=== PATIENT | female | born 2000 | race Caucasian/White ===

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

== ENCOUNTER 2023-06-03 20:36 | Emergency (ER) | payer OTHER, SELFPAY ==
[2023-06-03 21:20] VITALS: BP 145/80; PULSE 79; RESP 18; TEMP 36.9; O2SAT 98; BMI 30.7
[2023-06-03 21:49] LABS: MANUAL DIFF FLAG NO
[2023-06-03 21:50] LABS: Basophils Absolute Auto 0.1 X10*3/uL (0.0-0.2); Basophils Percent Auto 0.8 % (0-2); Eosinophils Absolute Auto 0.1 X10*3/uL (0.0-0.4); Eosinophils Percent Auto 0.9 % (0-4); Hematocrit 43.5 % (37.0-47.0); Hemoglobin 14.3 g/dl (12.0-16.0); Imm Gran Abs Auto 0.03 X10*3/uL (0.00-0.03); Imm Gran Pct Auto 0.3 % (0.0-0.4); Lymphocytes Absolute Auto 3.1 X10*3/uL (1.2-4.9); Lymphocytes Percent Auto 25.6 % (20-40); Mean Corpuscular HGB Conc 32.9 g/dl (31.0-35.0); Mean Corpuscular Hemoglobin 28.3 pg (27.0-33.0); Mean Platelet Volume 10.1 fL (9.4-12.3); Monocytes Absolute Auto 1.3 X10*3/uL (0.1-1.2); Monocytes Percent Auto 10.4 % (2-11); Neutrophils Absolute Auto 7.4 x10*3/uL (2.0-8.3); Platelet Count 338 X10*3/uL (160-400); Red Blood Count 5.06 X10*6/uL (4.20-5.50); Red Cell Distribution Width 12.5 % (11.0-16.0)
[2023-06-03 22:06] LABS: Alanine Aminotransferase 12 U/L (0-31); Albumin Level 4.7 g/dL (3.5-5.0); Alkaline Phosphatase 59 U/L (39-117); Anion Gap 13 (12-20); Aspartate Amino Transferase 14 U/L (5-31); Bilirubin Total 0.4 mg/dL (0.0-1.0); Blood Urea Nitrogen 11 mg/dL (9-16); Calcium 10.3 mg/dL (8.4-10.2); Carbon Dioxide 25 mmol/L (22-29); Chloride 106 mmol/L (96-108); Creatinine Clr Calc Pharmacy 127.2; Estimated Glomerular Filt Rate > 60; Glucose Random 94 mg/dL (60-115); Potassium 4.1 mmol/L (3.3-5.1); Sodium 140 mmol/L (135-145); Total Protein 7.6 g/dL (6.5-8.0)
--- OUTSIDE RECORDS SUMMARY | 2023-06-03 23:21 | XMS_ITS | Continuity of Care Document ---
Author Name Unknown Organization [facility] ter Address [address] [place] [id number]- Care Team Providers Care Air Hole Driller Name Role Phone Carol Martinez MD Primary Care Physician Encounter [facility] [place] Date(s): 05/01/21 - 05/02/[address] [address]- Encounter Diagnosis Fever(Final) - 05/02/21 Pharyngitis(Final) - 05/02/21 Discharge Disposition: A-D/C Home Attending Physician: Lola Leon DO Admitting Physician: Lola Leon DO Referring Physician: Not on Staff, Referring MD Allergies, Adverse Reactions, Alerts No Known Allergies Medications Acetaminophen Tablet 650 mg, Tablet, By Mouth, Once, STAT, 05/02/21 1:39:00 EST, Stop date 05/02/21 1:39:00 EST Start Date: 05/02/21 Stop Date: 05/02/21 Status: Completed Albuterol 0 Refills, Maintenance Start Date: 06/25/11 Status: Ordered Motrin Tablet 400 mg, Tablet, By Mouth, Once, STAT, 05/02/21 1:39:00 EST, Stop date 05/02/21 1:39:00 EST Start Date: 05/02/21 Stop Date: 05/02/21 Status: Completed ondansetron 4 mg oral tablet, disintegrating = 4 mg, By Mouth, Every 6 hours, PRN Nausea & Vomiting, # 10 tablet, 0 Refills, Maintenance, 02/21/19 13:11:00 EST, Tablet, [facility], 161, cm, 02/21/19 8:02:00 EST, Height, 68.4, kg, 02/21/19 1:20:00 EST, Dry Weight Start Date: 02/21/19 Status: Ordered Sprintec 1 tablet, By Mouth, Daily, 0 Refills, Maintenance, 02/21/19 3:08:00 EST Start Date: 02/21/19 Status: Ordered Results Orders for Microbiology Reports Name Date Group A Strep Screen and Culture 05/01/21 Microbiology Reports TEST:Group A Strep Screen and Culture STATUS:Unauthenticated BODY SITE: SOURCE:THROAT COLLECTED DATE/TIME:05/01/21 11:00 PM Group A Strep Screen and Culture SPECIMEN DESCRIPTION : THROAT SWAB SPECIAL REQUESTS : NONE DIRECT EXAM : RAPID GROUP A RESULT IS NEGATIVE, REFER TO CULTURE RESULT. REPORT STATUS : PRELIMINARY REPORT Radiology Reports * Exam Date Time Procedure Performing Provider Status 05/02/21 1:30 AM Chest 2 Views Frontal and Lat Juan J Downing; Auth (Verified) Notes: (Chest 2 Views Frontal and Lat) Reason For Exam: Shortness of Breath, Fever;Other: RESULT: Chest 2 Views Frontal and Lat Chest 2 Views Frontal and Lat Hx of Present Illness: swollen tonsils; Reason: Other:; Shortness of Breath, Fever; Clinical Question(s): Pneumonia COMPARISON: 02/21/2019 FINDINGS: LINES AND TUBES: None. LUNGS AND PLEURA: The lungs are clear. No pleural effusion. No pneumothorax. HEART, MEDIASTINUM AND TRESSA: Normal. BONES AND SOFT TISSUES: Normal. IMPRESSION: Normal. WSN: [id number] Ordering Physician: Josué Stewart Dictated By: Richard Mustafa MD Dictated Date/Time: 05/02/21 7:53 am Reviewed By: Richard Mustafa MD Signed By: Richard Mustafa MD Signed Date/Time: 05/02/21 7:53 am Transcribed By: LEONEL Transcribed Date/Time: 05/02/21 7:52 am Vital Signs Most recent to oldest [Reference Range]: 1 2 3 Oxygen Saturation [94-100 %] 97 % (05/02/21 3:10 AM) 94 % (05/02/21 1:45 AM) 96 % (05/02/21 12:30 AM) Pulse Rate [55-90 bpm] 73 bpm (05/02/21 3:10 AM) 88 bpm (05/02/21 1:45 AM) 103 bpm *H* (05/02/21 12:30 AM) Blood Pressure [71-110/30-71 mm Hg] 112/53mm Hg *H* (05/02/21 3:10 AM) 101/66mm Hg (05/02/21 1:45 AM) 123/71mm Hg *H* (05/02/21 12:30 AM) Respiratory Rate [16-30 br/min] 14 br/min *L* (05/02/21 3:10 AM) 18 br/min (05/02/21 2:56 AM) 16 br/min (05/02/21 2:56 AM) Temperature [96.8-100.4 DegF] 99.1 DegF (05/02/21 3:10 AM) 100 DegF (05/02/21 1:45 AM) 99.9 DegF (05/02/21 12:30 AM) Mode of Delivery (Oxygen) Room air (05/02/21 3:10 AM) Room air (05/02/21 1:45 AM) Room air (05/02/21 12:30 AM) Blood pressure sites Arm, right (05/01/21 10:57 PM) Temperature Route Oral (05/02/21 3:10 AM) Oral (05/02/21 1:45 AM) Oral (05/02/21 12:30 AM) Social History Social History Type Response Sex Female
--- OUTSIDE RECORDS SUMMARY | 2023-06-03 23:21 | XMS_ITS | Continuity of Care Document ---
Author Name Unknown Organization [facility] ter Address [address] [place] [id number]- Care Team Providers Care Farm Equipment Assembler Name Role Phone Juan RODRIGUEZ, Carol Espinoza Primary Care Physician Encounter [facility] Date(s): 02/21/19 - 02/21/[address] [address]- [facility] Discharge Disposition: A-D/C Home Attending Physician: Joselo Norris MD, Noe Levi Admitting Physician: Marylin Gleason MD Referring Physician: Not on Staff, Referring MD Allergies, Adverse Reactions, Alerts Substance Reaction Severity Status NKA Active Medications acetaminophen 650 mg/20.3 mL oral liquid 20.3 mL = 650 mg, By Mouth, Every 6 hours, PRN Pain , Mild Temperature, for 5 days, # 400 mL, 0 Refills, Acute 02/26/19 13:09:00 EST, 02/21/19 13:09:00 EST, Liquid, [facility], 161, cm, 02/21/19 8:02:00 EST, Height, 68.4, kg, 02/21/19... Start Date: 02/21/19 Stop Date: 02/26/19 Status: Ordered Albuterol 0 Refills, Maintenance Start Date: 06/25/11 Status: Ordered amoxicillin 250 mg/5 ml oral powder for reconstitution 17.5 mL = 875 mg, By Mouth, 2 times a day, for 9 days, # 315 mL, 0 Refills, Acute 03/02/19 13:11:00EST, 02/21/19 13:11:00 EST, Suspension, [facility], 161, cm, 02/21/19 8:02:00 EST, Height, 68.4, kg, 02/21/19 1:20:00 EST, Dry Weight Start Date: 02/21/19 Stop Date: 03/02/19 Status: Ordered ibuprofen 100 mg/5 mL oral suspension 30 mL = 600 mg, By Mouth, Every 6 hours, PRN Pain , Mild Temperature, for 5 days, # 600 mL, 0 Refills, Acute 02/26/19 13:09:00 EST, 02/21/19 13:09:00 EST, Suspension, [facility], 161,cm, 02/21/19 8:02:00 EST, Height, 68.4, kg, ... Start Date: 02/21/19 Stop Date: 02/26/19 Status: Ordered ondansetron 4 mg oral tablet, disintegrating = 4 mg, By Mouth, Every 6 hours, PRN Nausea & Vomiting, # 10 tablet, 0 Refills, Maintenance, 02/21/19 13:11:00 EST, Tablet, [facility], 161, cm, 02/21/19 8:02:00 EST, Height, 68.4, kg, 02/21/19 1:20:00 EST, Dry Weight Start Date: 02/21/19 Status: Ordered Sprintec 1 tablet, By Mouth, Daily, 0 Refills, Maintenance, 02/21/19 3:08:00 EST Start Date: 02/21/19 Status: Ordered Results Radiology Reports * Exam Date Time Procedure Performing Provider Status 02/21/19 12:48 AM Chest 2 Views Frontal and Lat Jerald Larson; Auth (Verified) Notes: (Chest 2 Views Frontal and Lat) Reason For Exam: Shortness of Breath, Fever;Other: RESULT: Chest 2 Views Frontal and Lat Chest 2 Views Frontal and Lat Reason: Shortness of breath, fever. COMPARISON: 06/25/2011 FINDINGS: LINES AND TUBES: None. LUNGS AND PLEURA: The lungs are clear. No pleural effusion. No pneumothorax. HEART, MEDIASTINUM AND TRESSA: Normal. BONES AND SOFT TISSUES: Normal. IMPRESSION: Normal. WSN: [id number] Dictated By: Jesse Gloria MD Dictated Date/Time: 02/21/19 8:55 am Reviewed By: Jesse Gloria MD Signed By: Jesse Gloria MD Signed Date/Time: 02/21/19 8:55 am Transcribed By: LEONEL Transcribed Date/Time: 02/21/19 8:54 am Vital Signs Most recent to oldest [Reference Range]: 1 2 3 Height 161 cm (02/21/19 8:02 AM) 161 cm (02/21/19 5:55 AM) 161 cm (02/21/19 1:20 AM) Weight 68.4 kg (02/21/19 1:20 AM) 65.5 kg (02/20/19 11:35 PM) 65.5 kg (02/20/19 9:05 PM) Oxygen Saturation [94-100 %] 100 % (02/21/19 8:02 AM) 100 % (02/21/19 5:55 AM) 100 % (02/21/19 1:20 AM) Pulse Rate [55-90 bpm] 66 bpm (02/21/19 8:02 AM) 91 bpm *H* (02/21/19 5:55 AM) 88 bpm (02/21/19 1:20 AM) Body Mass Index [18.5-24.99] 26.39 *H* (02/21/19 1:20 AM) 25.27 *H* (02/20/19 11:35 PM) Blood Pressure [80-130/50-80 mm Hg] 115/50mm Hg (02/21/19 8:02 AM) 115/60mm Hg (02/21/19 5:55 AM) 120/54mm Hg (02/21/19 1:20 AM) Respiratory Rate [16-30 br/min] 16 br/min (02/21/19 8:02 AM) 20 br/min (02/21/19 7:11 AM) 24 br/min (02/21/19 5:55 AM) Temperature [96.8-100.4 DegF] 98.6 DegF (02/21/19 8:02 AM) 98.0 DegF (02/21/19 5:55 AM) 98.1 DegF (02/21/19 1:20 AM) Mode of Delivery (Oxygen) Room air (02/21/19 8:02 AM) Room air (02/21/19 5:55 AM) Room air (02/21/19 1:20 AM) Blood pressure sites Arm, left (02/21/19 8:02 AM) Arm, left (02/21/19 5:55 AM) Arm, left (02/21/19 1:20 AM) Temperature Route Oral (02/21/19 8:02 AM) Oral (02/21/19 5:55 AM) Oral (02/21/19 1:20 AM) Dry Weight 68.4 kg (02/21/19 1:20 AM) 65.5 kg (02/20/19 11:35 PM) 65.5 kg (02/20/19 9:05 PM) Weight Obtained Via Standing scale (02/21/19 1:20 AM) Standing scale (02/20/19 9:05 PM) Dry Weight Obtained Via Standing scale (02/21/19 1:20 AM) Standing scale (02/20/19 9:05 PM) Social History Social History Type Response Sex Female
--- OUTSIDE RECORDS SUMMARY | 2023-06-03 23:21 | XMS_ITS | Continuity of Care Document ---
Author Name Unknown Organization [facility] ter Address [address] [place] [id number]- Care Team Providers Care Rack Cleaner Name Role Phone Carol Martinez MD Primary Care Physician [place] [facility] [place]18[place] - 02/18/[address] [address]- [place] Encounter Diagnosis Influenza(Final) - 02/18/19 Discharge Disposition: A-D/C Home Attending Physician: Alfonso Bennett MD Admitting Physician: Alfonso Bennett MD Referring Physician: Not on Staff, Referring MD Allergies, Adverse Reactions, Alerts Substance Reaction Severity Status NKA Active Medications Albuterol 0 Refills, Maintenance Start Date: 06/25/11 Status: Ordered Apri 0.15 mg-0.03 mg oral tablet 1 tablet, By Mouth, Daily, # 28 tablet, 0 Refills, Maintenance, 10/21/18 19:29:50 EDT, Tablet Start Date: 10/21/18 Status: Ordered ibuprofen 400 mg oral tablet 400 mg, 1, tablet, By Mouth, Every 6 hours, PRN, # 60 tablet, Refills 0, Tot. Refills 0, Maintenance, as needed for pain, 01/20/16 15:35:25, Print Requisition Start Date: 01/20/16 Status: Ordered Tylenol 325 mg oral tablet 975 mg, By Mouth, Every 6 hours, PRN, Refills 0, Maintenance, Pain , Moderate, 06/08/18 10:47:54 EDT Start Date: 06/08/18 Status: Ordered Zofran ODT 4 mg oral tablet, disintegrating 1 tablet = 4 mg, By Mouth, Every 8 hours, PRN Nausea & Vomiting, # 10 tablet, 0 Refills, Maintenance, 01/21/19 21:45:35 EST, Tablet Start Date: 01/21/19 Status: Ordered Zofran ODT 4 mg oral tablet, disintegrating 1 tablet = 4 mg, By Mouth, 3 times a day, # 90 tablet, 0 Refills, Maintenance, 06/06/18 15:53:17 EDT Start Date: 06/06/18 Status: Ordered Vital Signs Most recent to oldest [Reference Range]: 1 2 3 Height 160 cm (02/18/19 9:35 PM) 160 cm (02/18/19 7:10 PM) 160 cm (02/18/19 6:01 PM) Weight 67.9 kg (02/18/19 9:35 PM) 67.9 kg (02/18/19 7:10 PM) 67.9 kg (02/18/19 6:01 PM) Oxygen Saturation [94-100 %] 99 % (02/18/19 9:35 PM) 100 % (02/18/19 7:10 PM) 100 % (02/18/19 5:17 PM) Pulse Rate [55-90 bpm] 72 bpm (02/18/19 9:35 PM) 94 bpm *H* (02/18/19 7:10 PM) 86 bpm (02/18/19 5:17 PM) Body Mass Index [18.5-24.99] 26.52 *H* (02/18/19 9:35 PM) 26.52 *H* (02/18/19 7:10 PM) 26.52 *H* (02/18/19 5:17 PM) Blood Pressure [80-130/50-80 mm Hg] 126/59mm Hg (02/18/19 9:35 PM) 108/52mm Hg (02/18/19 7:10 PM) 110/90mm Hg (02/18/19 5:17 PM) Respiratory Rate [16-30 br/min] 18 br/min (02/18/19 9:35 PM) 18 br/min (02/18/19 7:10 PM) 18 br/min (02/18/19 5:17 PM) Temperature [96.8-100.4 DegF] 99.0 DegF (02/18/19 9:35 PM) 100 DegF (02/18/19 7:10 PM) 100.3 DegF (02/18/19 5:17 PM) Mode of Delivery (Oxygen) Room air (02/18/19 9:35 PM) Room air (02/18/19 7:10 PM) Room air (02/18/19 5:17 PM) Blood pressure sites Arm, right (02/18/19 9:35 PM) Arm, right (02/18/19 7:10 PM) Arm, left (02/18/19 5:17 PM) Temperature Route Oral (02/18/19 9:35 PM) Oral (02/18/19 7:10 PM) Rectal (02/18/19 5:17 PM) Dry Weight 67.9 kg (02/18/19 9:35 PM) 67.9 kg (02/18/19 7:10 PM) 67.9 kg (02/18/19 6:01 PM) Weight Obtained Via Standing scale (02/18/19 5:17 PM) Dry Weight Obtained Via Standing scale (02/18/19 5:17 PM) Social History Social History Type Response Sex Female
--- OUTSIDE RECORDS SUMMARY | 2023-06-03 23:21 | XMS_ITS | Continuity of Care Document ---
Author Name Unknown Organization [facility] ter Address [address] [place] [id number]- Care Team Providers Care Utilities And Maintenance Supervisor Name Role Phone Carol Martinez MD Primary Care Physician Encounter [facility] Date(s): 02/25/19 - 02/26/[address] [address]- [facility] Discharge Disposition: A-D/C Home Attending Physician: Parish Martinez DO Admitting Physician: Parish Martinez DO Referring Physician: Not on Staff, Referring MD Allergies, Adverse Reactions, Alerts Substance Reaction Severity Status NKA Active Medications Albuterol 0 Refills, Maintenance Start Date: 06/25/11 Status: Ordered amoxicillin 250 mg/5 ml oral powder for reconstitution 17.5 mL = 875 mg, By Mouth, 2 times a day, for 9 days, # 315 mL, 0 Refills, Acute 03/02/19 13:11:00EST, 02/21/19 13:11:00 EST, Suspension, [facility], 161, cm, 02/21/19 8:02:00 EST, Height, 68.4, kg, 02/21/19 1:20:00 EST, Dry Weight Start Date: 02/21/19 Stop Date: 03/02/19 Status: Ordered ondansetron 4 mg oral tablet, disintegrating = 4 mg, By Mouth, Every 6 hours, PRN Nausea & Vomiting, # 10 tablet, 0 Refills, Maintenance, 02/21/19 13:11:00 EST, Tablet, [facility], 161, cm, 02/21/19 8:02:00 EST, Height, 68.4, kg, 02/21/19 1:20:00 EST, Dry Weight Start Date: 02/21/19 Status: Ordered Reglan 10 mg oral tablet 1 tablet = 10 mg, By Mouth, Every 8 hours, PRN Nausea & Vomiting, for 3 days, # 9 tablet, 0 Refills, Acute 03/01/19 0:00:00 EST, 02/26/19 0:00:00 EST, Tablet, [facility]/pharmacy #[id number], 162, cm, 02/25/19 20:58:00 EST, Height, 66, kg, 02/25/19 20:58:00 EST, D... Start Date: 02/26/19 Stop Date: 03/01/19 Status: Ordered Sprintec 1 tablet, By Mouth, Daily, 0 Refills, Maintenance, 02/21/19 3:08:00 EST Start Date: 02/21/19 Status: Ordered Vital Signs Most recent to oldest [Reference Range]: 1 2 3 Height 162 cm (02/25/19 8:58 PM) 162 cm (02/25/19 6:54 PM) 162 cm (02/25/19 6:37 PM) Weight 66.0 kg (02/25/19 8:58 PM) 66.0 kg (02/25/19 6:54 PM) 66.0 kg (02/25/19 6:37 PM) Oxygen Saturation [94-100 %] 100 % (02/25/19 8:58 PM) 100 % (02/25/19 6:37 PM) Pulse Rate [55-90 bpm] 106 bpm *H* (02/25/19 8:58 PM) 100 bpm *H* (02/25/19 6:37 PM) Body Mass Index [18.5-24.99] 25.15 *H* (02/25/19 8:58 PM) 25.15 *H* (02/25/19 6:37 PM) Blood Pressure [80-130/50-80 mm Hg] 127/46mm Hg 1 (02/25/19 8:58 PM) 136/62mm Hg *H* (02/25/19 6:37 PM) Respiratory Rate [16-30 br/min] 20 br/min (02/25/19 8:58 PM) 22 br/min (02/25/19 6:37 PM) Temperature [96.8-100.4 DegF] 100.1 DegF (02/25/19 8:58 PM) 98.5 DegF (02/25/19 6:37 PM) Mode of Delivery (Oxygen) Room air (02/25/19 8:58 PM) Room air (02/25/19 6:37 PM) Blood pressure sites Arm, left (02/25/19 8:58 PM) Arm, right (02/25/19 6:37 PM) Temperature Route Oral (02/25/19 8:58 PM) Oral (02/25/19 6:37 PM) Dry Weight 66.0 kg (02/25/19 8:58 PM) 66.0 kg (02/25/19 6:54 PM) 66.0 kg (02/25/19 6:37 PM) Weight Obtained Via Standing scale (02/25/19 6:37 PM) Dry Weight Obtained Via Standing scale (02/25/19 6:37 PM) 1Result Comment: Pt laying down during vitals. Social History Social History Type Response Sex Female
--- OUTSIDE RECORDS SUMMARY | 2023-06-03 23:21 | XMS_ITS | Continuity of Care Document ---
Author Name Unknown Organization [facility] ter Address [address] [place] [id number]- Care Team Providers Care Filler And Trimmer Name Role Phone Juan RODRIGUEZ, Carol Espinoza Primary Care Physician [phone] Encounter [facility] Date(s): 02/25/19 - 02/25/[address] [address]- [facility] Attending Physician: Roselyn Carpenter MD Allergies, Adverse Reactions, Alerts Substance Reaction [...] 0 Refills, Maintenance, 02/21/19 13:11:00 EST, Tablet, [facility], 161, cm, 02/21/19 8:02:00 EST, Height, 68.4, kg, 02/21/19 1:20:00 EST, Dry Weight Start Date: 02/21/19 Status: Ordered Reglan 10 mg oral tablet 1 tablet = 10 mg, By Mouth, Every 8 hours, PRN Nausea & Vomiting, for 3 days, # 9 tablet, 0 Refills, Acute 03/01/19 0:00:00 EST, 02/26/19 0:00:00 EST, Tablet, [facility]/pharmacy #[id number], 162, cm, 02/25/19 20:58:00 EST, Height, 66, kg, 02/25/19 20:58:00 EST, D... Start Date: 02/26/19 Stop Date: 03/01/19 Status: Ordered Sprintec 1 tablet, By Mouth, Daily, 0 Refills, Maintenance, 02/21/19 3:08:00 EST Start Date: 02/21/19 Status: Ordered Social History Social History Type Response Sex Female
== END 2023-06-04 00:30 | disposition left against medical advice (07) ==
PROVIDERS: Emergency Provider Emergency Medicine; PCP Pediatrics Adolescent Medicine
DX: F32.A Depression, unspecified (principal)
CPT/HCPCS: 36415; 80053; 85025; 99281; 99283

== ENCOUNTER 2023-07-09 22:33 | Emergency (ER) | payer OTHER, SELFPAY ==
[2023-07-09 22:41] VITALS: BP 128/65; PULSE 118; RESP 18; TEMP 37.2; O2SAT 97; BMI 29.3
[2023-07-11 13:35] VITALS: BP 0/0; PULSE 0; RESP 0; TEMP -17.7; TEMP 0
== END 2023-07-09 23:13 | disposition left against medical advice (07) ==
PROVIDERS: Emergency Provider Emergency Medicine; PCP Pediatrics Adolescent Medicine
DX: R07.0 Pain in throat (principal); R11.10 Vomiting, unspecified; M79.10 Myalgia, unspecified site
CPT/HCPCS: 99281; 99282